=== PATIENT | male | born 1975 | race Caucasian/White ===

== ENCOUNTER 2018-05-30 12:15 | Inpatient (IN) | payer MEDICARE ==
[~2018-05-30] VITALS: Ht 167.6 cm; Wt 127.3 kg
[~2018-05-30 12:15] MED LIST: LAMISIL250 MG; NORCO 10/325 TA1 TA1 PO; SEROQUEL300 MG PO; ZOLOFT100 MG PO
[2018-05-30 14:23] VITALS: BP 105/68
[2018-05-30 17:45] VITALS: BP 114/52; BMI 45.3
[2018-05-30 21:42] VITALS: BP 129/75
[2018-05-31 06:08] LABS: BASOPHILS 0.2 % (0-2); HEMATOCRIT 37.6 % (42.0-54.0); HEMOGLOBIN 12.7 g/dL (13.5-17.5); IMMATURE GRANULOCYTES 0.3 % (0-5); LYMPHOCYTES 22.9 % (15-50); MCH 30.2 pg (26.0-34.0); MCHC 33.8 g/dL (31.0-37.0); MCV 89.3 fL (80.0-100.0); MEAN PLATELET VOLUME 10.1 fL (7.4-10.4); MONOCYTES 14.6 % (2-11); PLATELET COUNT 251 10x3/uL (130-400); RBC 4.21 10x6/uL (4.20-6.10); RDW 13.5 % (11.5-14.5); WBC 11.6 10x3/uL (4.8-10.8)
[2018-05-31 06:47] LABS: CALC OSMOLALITY 275 mosm/kg (275-300); CALCIUM 7.8 mg/dL (8.5-10.1); CARBON DIOXIDE 26.9 mmol/L (21.0-32.0); CHLORIDE - SERUM 101 mmol/L (98-107); CREATININE - SERUM 0.9 mg/dL (0.6-1.3); GLUCOSE 112 mg/dL (74-106); POTASSIUM - SERUM 3.2 mmol/L (3.5-5.1); SODIUM 138 mmol/L (136-145); UREA NITROGEN 11 mg/dL (7-18); eGFR NON AFRICAN AMERICAN > 90 mL/min (90-120)
[2018-05-31 09:23] VITALS: BP 141/63
[2018-05-31 10:34] VITALS: Ht 167.6 cm; Wt 127.3 kg
[2018-05-31 12:48] VITALS: BP 127/69
[2018-05-31 17:13] VITALS: BP 139/71
[2018-05-31 21:13] VITALS: BP 167/80
[2018-05-31 22:51] VITALS: BP 167/80
[2018-06-01 04:10] VITALS: BP 115/76
[2018-06-01 06:23] LABS: BASOPHILS 0.3 % (0-2); EOSINOPHILS 2.3 % (0-7); HEMATOCRIT 36.2 % (42.0-54.0); HEMOGLOBIN 12.1 g/dL (13.5-17.5); IMMATURE GRANULOCYTES 0.2 % (0-5); LYMPHOCYTES 19.3 % (15-50); MCH 30.2 pg (26.0-34.0); MCHC 33.4 g/dL (31.0-37.0); MCV 90.3 fL (80.0-100.0); MEAN PLATELET VOLUME 10.1 fL (7.4-10.4); MONOCYTES 14.5 % (2-11); NEUTROPHILS 63.4 % (40-80); PLATELET COUNT 254 10x3/uL (130-400); RBC 4.01 10x6/uL (4.20-6.10); RDW 13.4 % (11.5-14.5); WBC 10.1 10x3/uL (4.8-10.8)
[2018-06-01 07:01] LABS: CALCIUM 8.1 mg/dL (8.5-10.1); CARBON DIOXIDE 29.7 mmol/L (21.0-32.0); CHLORIDE - SERUM 102 mmol/L (98-107); CREATININE - SERUM 0.7 mg/dL (0.6-1.3); GLUCOSE 99 mg/dL (74-106); SODIUM 138 mmol/L (136-145); eGFR NON AFRICAN AMERICAN > 90 mL/min (90-120)
[2018-06-01 07:07] LABS: CALC OSMOLALITY 272 mosm/kg (275-300); POTASSIUM - SERUM 3.2 mmol/L (3.5-5.1); UREA NITROGEN 4 mg/dL (7-18)
[2018-06-01 08:36] VITALS: BP 130/72
[2018-06-01 12:24] VITALS: BP 119/62
[2018-06-01 16:14] VITALS: BP 128/69
[2018-06-01 19:48] VITALS: BP 150/68
[2018-06-01 23:40] VITALS: BP 159/74
[2018-06-02 06:11] VITALS: BP 132/75
[2018-06-02 06:42] LABS: BASOPHILS 0.6 % (0-2); EOSINOPHILS 4.7 % (0-7); HEMATOCRIT 34.8 % (42.0-54.0); HEMOGLOBIN 11.5 g/dL (13.5-17.5); IMMATURE GRANULOCYTES 0.4 % (0-5); LYMPHOCYTES 20.5 % (15-50); MCH 30.2 pg (26.0-34.0); MCV 91.3 fL (80.0-100.0); MONOCYTES 14.4 % (2-11); NEUTROPHILS 59.4 % (40-80); PLATELET COUNT 222 10x3/uL (130-400); RBC 3.81 10x6/uL (4.20-6.10); RDW 13.4 % (11.5-14.5); WBC 8.5 10x3/uL (4.8-10.8)
[2018-06-02 07:00] LABS: CALC OSMOLALITY 280 mosm/kg (275-300); CALCIUM 7.9 mg/dL (8.5-10.1); CARBON DIOXIDE 33.8 mmol/L (21.0-32.0); CHLORIDE - SERUM 104 mmol/L (98-107); CREATININE - SERUM 0.6 mg/dL (0.6-1.3); GLUCOSE 98 mg/dL (74-106); POTASSIUM - SERUM 3.9 mmol/L (3.5-5.1); SODIUM 142 mmol/L (136-145); UREA NITROGEN 7 mg/dL (7-18); eGFR NON AFRICAN AMERICAN > 90 mL/min (90-120)
[2018-06-02 08:54] VITALS: BP 137/71
[2018-06-02 12:45] VITALS: BP 197/116
[2018-06-02 16:31] VITALS: BP 129/73
[2018-06-02 20:00] VITALS: BP 131/43
[2018-06-03 04:00] VITALS: BP 138/65
[2018-06-03 05:56] LABS: BASOPHILS 0.8 % (0-2); EOSINOPHILS 5.2 % (0-7); HEMOGLOBIN 11.7 g/dL (13.5-17.5); IMMATURE GRANULOCYTES 0.3 % (0-5); LYMPHOCYTES 19.5 % (15-50); MCH 29.8 pg (26.0-34.0); MCHC 32.5 g/dL (31.0-37.0); MCV 91.8 fL (80.0-100.0); MEAN PLATELET VOLUME 9.9 fL (7.4-10.4); MONOCYTES 12.3 % (2-11); NEUTROPHILS 61.9 % (40-80); PLATELET COUNT 265 10x3/uL (130-400); RBC 3.92 10x6/uL (4.20-6.10); RDW 13.5 % (11.5-14.5); WBC 9.9 10x3/uL (4.8-10.8)
[2018-06-03 08:07] VITALS: BP 187/107
[2018-06-03 08:53] LABS: CALC OSMOLALITY 279 mosm/kg (275-300); CARBON DIOXIDE 31.4 mmol/L (21.0-32.0); CHLORIDE - SERUM 104 mmol/L (98-107); CREATININE - SERUM 0.4 mg/dL (0.6-1.3); GLUCOSE 96 mg/dL (74-106); POTASSIUM - SERUM 3.8 mmol/L (3.5-5.1); SODIUM 141 mmol/L (136-145); UREA NITROGEN 9 mg/dL (7-18); eGFR NON AFRICAN AMERICAN > 90 mL/min (90-120)
[2018-06-03 13:03] VITALS: BP 138/63
[2018-06-03 15:41] VITALS: BP 159/69
[2018-06-03 20:20] VITALS: BP 113/51
[2018-06-03 23:54] VITALS: BP 120/72
[2018-06-04 04:00] VITALS: BP 110/46
[2018-06-04 06:00] LABS: BASOPHILS 0.6 % (0-2); EOSINOPHILS 5.7 % (0-7); HEMATOCRIT 34.9 % (42.0-54.0); HEMOGLOBIN 11.8 g/dL (13.5-17.5); IMMATURE GRANULOCYTES 0.5 % (0-5); LYMPHOCYTES 20.7 % (15-50); MCH 30.5 pg (26.0-34.0); MCHC 33.8 g/dL (31.0-37.0); MCV 90.2 fL (80.0-100.0); MEAN PLATELET VOLUME 9.8 fL (7.4-10.4); NEUTROPHILS 61.5 % (40-80); PLATELET COUNT 309 10x3/uL (130-400); RBC 3.87 10x6/uL (4.20-6.10); RDW 13.6 % (11.5-14.5); WBC 10.2 10x3/uL (4.8-10.8)
[2018-06-04 06:21] LABS: CALC OSMOLALITY 276 mosm/kg (275-300); CALCIUM 8.4 mg/dL (8.5-10.1); CARBON DIOXIDE 27.5 mmol/L (21.0-32.0); CHLORIDE - SERUM 103 mmol/L (98-107); GLUCOSE 97 mg/dL (74-106); SODIUM 139 mmol/L (136-145); UREA NITROGEN 11 mg/dL (7-18)
[2018-06-04 06:24] LABS: CREATININE - SERUM 0.7 mg/dL (0.6-1.3); POTASSIUM - SERUM 4.5 mmol/L (3.5-5.1); eGFR NON AFRICAN AMERICAN > 90 mL/min (90-120)
[2018-06-04] MEDS ORDERED: NEOSPORIN OINTM15 GM TOPICAL (09:08)
[2018-06-04] MEDS ORDERED: TESSALON PERLE100 MG PO (09:08)
[2018-06-04] MEDS ORDERED: ZOFRAN ODT4 MG/UDTAB PO (09:08)
[2018-06-04] MEDS ORDERED: MUCINEX600 MG PO (09:08)
[2018-06-04] MEDS ORDERED: COLACE100 MG PO (09:08)
[2018-06-04] MEDS ORDERED: NORCO 7.5/325 T1 TA1 PO (09:09)
[2018-06-04] MEDS ORDERED: CATAPRES0.1 MG PO (09:09)
[2018-06-04 09:50] VITALS: BP 122/72
[2018-06-04] MEDS ORDERED: HYDROCODONE-APA1 TAB PO (10:41)
== END 2018-06-04 12:08 | disposition home or self-care (01) | DRG 513 ==
LOC: D.ER 12:15 → OBSVTIME 17:16 → D.MS 17:16
PROVIDERS: Family Medicine; Internal Medicine Nephrology
PROC: 0JQK0ZZ Repair Left Hand Subcutaneous Tissue and Fascia, Open Approach (ICD-10-PCS; principal; 2018-05-30)
DX: S32.039A Unspecified fracture of third lumbar vertebra, initial encounter for closed fracture (principal); S22.31XA Fracture of one rib, right side, initial encounter for closed fracture; S36.32XA Contusion of stomach, initial encounter; Z68.42 Body mass index [BMI] 45.0-49.9, adult; F17.203 Nicotine dependence unspecified, with withdrawal; S32.049A Unspecified fracture of fourth lumbar vertebra, initial encounter for closed fracture; V03.10XA Pedestrian on foot injured in collision with car, pick-up truck or van in traffic accident, initial encounter; S61.412A Laceration without foreign body of left hand, initial encounter; S59.902A Unspecified injury of left elbow, initial encounter; E87.6 Hypokalemia; F20.9 Schizophrenia, unspecified; F41.9 Anxiety disorder, unspecified; F31.9 Bipolar disorder, unspecified; F43.10 Post-traumatic stress disorder, unspecified; F41.0 Panic disorder [episodic paroxysmal anxiety]; E66.01 Morbid (severe) obesity due to excess calories